=== PATIENT | male | born 1960 | race Caucasian/White ===

== ENCOUNTER 2018-12-20 13:52 | Emergency (ER) | payer OTHER ==
[~2018-12-20] VITALS: Ht 182.9 cm; Wt 110.0 kg
[~2018-12-20 13:52] MED LIST: AUGMENTIN875TAB PO; BACTRIM DS1 TAB PO; BENADRY2 EX; BENADRYL 50MG C50 MG PO; CHANTIX STARTIN0.5 & PO; DEPO-MEDROL40 MG/ML IM; DOXYCYCL HYC100 M4 PO; FLEXERIL OR; FLEXERIL PO; HYDROXYZ HCL25 MG PO; LISINOPRIL10 MG PO; LOSARTAN POT25 MG PO; NAPROSYN500 MG PO; NO HOME MEDS; ULTRAM50 MG OR; ULTRAVATE0.05 % EX; ZYBAN150 MG PO
[2018-12-20] MEDS ORDERED: CIPROFLOXACN0.3 % OD (14:49)
[2018-12-20 14:53] VITALS: BP 148/93
== END 2018-12-20 15:10 | disposition home or self-care (01) | DRG 125 ==
LOC: ED 13:52
PROC: 08C0XZZ Extirpation of Matter from Right Eye, External Approach (ICD-10-PCS; principal; 2018-12-20)
DX: S05.11XA Contusion of eyeball and orbital tissues, right eye, initial encounter (principal); S00.251A Superficial foreign body of right eyelid and periocular area, initial encounter; W20.8XXA Other cause of strike by thrown, projected or falling object, initial encounter; Y93.89 Activity, other specified; Y92.411 Interstate highway as the place of occurrence of the external cause; Y99.0 Civilian activity done for income or pay

== ENCOUNTER 2019-04-19 13:54 | Emergency (ER) | payer OTHER ==
[~2019-04-19] VITALS: Ht 182.9 cm; Wt 110.0 kg
[~2019-04-19 13:54] MED LIST changes: +CIPROFLOXACN0.3 % OD
[2019-04-19] MEDS ORDERED: CEPHALEXIN500 M1 PO (15:01)
[2019-04-19 15:10] VITALS: BP 126/70
== END 2019-04-19 15:23 | disposition home or self-care (01) | DRG 605 ==
LOC: ED 13:54
PROC: 0HQGXZZ Repair Left Hand Skin, External Approach (ICD-10-PCS; principal; 2019-04-19)
DX: S61.012A Laceration without foreign body of left thumb without damage to nail, initial encounter (principal); I10 Essential (primary) hypertension; W45.8XXA Other foreign body or object entering through skin, initial encounter; W27.8XXA Contact with other nonpowered hand tool, initial encounter; Y93.89 Activity, other specified; Y92.89 Other specified places as the place of occurrence of the external cause; Y99.0 Civilian activity done for income or pay

== ENCOUNTER 2022-08-05 13:09 | Emergency (ER) | payer OTHER ==
[~2022-08-05] VITALS: Ht 182.9 cm; Wt 104.5 kg
[~2022-08-05 13:09] MED LIST changes: +CEPHALEXIN500 M1 PO
[2022-08-05 13:17] VITALS: BP 157/69
[2022-08-05 13:31] VITALS: BP 131/70
[2022-08-05] MEDS ORDERED: ERYTHROMYCIN O3.5 GM OS (13:38)
[2022-08-05 13:46] VITALS: BP 131/65
[2022-08-05 13:57] VITALS: BP 131/65
== END 2022-08-05 13:57 | disposition home or self-care (01) | DRG 125 ==
LOC: ED 13:09
DX: S05.02XA Injury of conjunctiva and corneal abrasion without foreign body, left eye, initial encounter (principal); I10 Essential (primary) hypertension; X58.XXXA Exposure to other specified factors, initial encounter

== ENCOUNTER 2023-06-25 08:54 | Emergency (ER) | payer OTHER ==
[~2023-06-25] VITALS: Ht 182.9 cm; Wt 104.0 kg
[~2023-06-25 08:54] MED LIST changes: +ERYTHROMYCIN O3.5 GM OS
[2023-06-25 09:06] VITALS: BP 159/71
[2023-06-25 10:01] VITALS: BP 133/73
[2023-06-25] MEDS ORDERED: NAPROXEN500 MG PO (10:08)
[2023-06-25 10:32] VITALS: BP 133/73
== END 2023-06-25 10:32 | disposition home or self-care (01) | DRG 556 ==
LOC: ED 08:54
DX: M25.561 Pain in right knee (principal); I10 Essential (primary) hypertension; E66.9 Obesity, unspecified

== ENCOUNTER 2024-03-20 07:30 | Emergency (ER) | payer OTHER ==
[2024-03-20] VITALS (7 sets, daily range): BP systolic 124–155; BP diastolic 77–97
[~2024-03-20] VITALS: Ht 180.3 cm; Wt 109.0 kg
[~2024-03-20 07:30] MED LIST changes: +NAPROXEN500 MG PO
[2024-03-20] MEDS ORDERED: VALACYCLOVIR HYD1 GM PO (07:48)
== END 2024-03-20 09:07 | disposition home or self-care (01) | DRG 596 ==
LOC: ED 07:30
DX: B02.9 Zoster without complications (principal); E66.9 Obesity, unspecified